=== PATIENT | female | born 1955 | race Caucasian/White ===

== ENCOUNTER 2016-05-04 17:04 | Emergency (ER) | payer MEDICAID ==
[~2016-05-04] VITALS: Ht 160 cm; Wt 70.0 kg
[2016-05-04] MEDS ORDERED: SODIUM CHLORIDE 0.9% 1,000 ML IV ONE (22:36)
[2016-05-04] MEDS ORDERED: ONDANSETRON HCL 4MG/2ML VIAL IV STA (22:36)
[2016-05-04] MEDS ORDERED: DIPHENOXYLATE/ATROPINE 2.5/0.025MG TABLET PO ONE (22:45)
[2016-05-04 23:40] VITALS: BP 107/69
[2016-05-05 00:30] LABS: BASOPHILS % 0.4 % (0.0-2.0); EOSINOPHILS % 1.5 % (0.0-5.0); HEMATOCRIT. 39.1 % (36.0-48.0); HEMOGLOBIN. 12.8 g/dL (12.0-16.0); LYMPHOCYTES % 26.5 % (20.0-50.0); MEAN CORPUSCULAR HEMOGLOBIN 28.9 pg (28.0-32.0); MEAN CORPUSCULAR HGB CONC 32.8 g/dL (31.0-37.0); MEAN CORPUSCULAR VOLUME 88.2 fL (81.0-99.0); MEAN PLATELET VOLUME 7.6 fl (7.4-10.4); MONOCYTES % 5.9 % (2.0-8.0); NEUTROPHILS % 65.7 % (40.0-76.0); PLATELET 251 x1000/uL (130-400); RED BLOOD CELL COUNT 4.44 mill/uL (4.2-5.4); RED CELL DISTRIBUTION WIDTH 13.7 % (11.6-14.6); WHITE BLOOD COUNT 8.6 x1000/uL (4.5-11.0)
[2016-05-05 00:39] LABS: CHLORIDE 110 mEq/L (98-107); INDEX HEMOLYSI 1 (1-3); INDEX ICTERIC 1 (1-4); INDEX LIPEMIC 1 (1-3)
[2016-05-05 00:48] LABS: ALANINE AMINOTRANSFERASE 39 IU/L (13-61); ALBUMIN 3.2 g/dL (3.4-5.0); ANION GAP 13; CALCIUM 8.1 mg/dL (8.5-10.1); CARBON DIOXIDE 21 mEq/L (21-32); LIPASE 129 IU/L (73-393); UREA NITROGEN BLOOD 10 mg/dL (7-21); eGFR > 60 mL/min (>60)
[2016-05-05 00:49] LABS: HCG SCREEN INDETERMINATE
[2016-05-05] MEDS ORDERED: POTASSIUM CHLORIDE 20MEQ TABLET SR PO NR (01:31)
== END 2016-05-05 01:45 | disposition home or self-care (01) ==
LOC: ER 20:52
DX: R10.84 Generalized abdominal pain (principal); E83.51 Hypocalcemia; E87.6 Hypokalemia; N28.1 Cyst of kidney, acquired; R91.1 Solitary pulmonary nodule; E07.9 Disorder of thyroid, unspecified; E78.5 Hyperlipidemia, unspecified; M19.90 Unspecified osteoarthritis, unspecified site; Z88.5 Allergy status to narcotic agent; Z91.013 Allergy to seafood; Z98.51 Tubal ligation status; Z90.49 Acquired absence of other specified parts of digestive tract; R94.8 Abnormal results of function studies of other organs and systems
CPT/HCPCS: 36415; 80053; 83690; 84702; 84703; 85025; 96361; 96374; 99285; J2405; J7030; Z7610

== ENCOUNTER 2017-03-22 14:09 | Emergency (ER) | payer MEDICAID, OTHER ==
[~2017-03-22] VITALS: Ht 160 cm; Wt 66.0 kg
[2017-03-22] MEDS ORDERED: IBUPROFEN 600MG TABLET PO ONE (15:30)
[2017-03-22 15:33] VITALS: BP 127/94
== END 2017-03-22 18:02 | disposition home or self-care (01) ==
LOC: ER 15:11
DX: S62.646A Nondisplaced fracture of proximal phalanx of right little finger, initial encounter for closed fracture (principal); M19.90 Unspecified osteoarthritis, unspecified site; Z88.5 Allergy status to narcotic agent; Z91.013 Allergy to seafood; Z90.49 Acquired absence of other specified parts of digestive tract; Z98.51 Tubal ligation status; W01.0XXA Fall on same level from slipping, tripping and stumbling without subsequent striking against object, initial encounter; Y93.89 Activity, other specified; Y92.89 Other specified places as the place of occurrence of the external cause
CPT/HCPCS: 29125; 73130; 99284

== ENCOUNTER 2018-04-12 12:57 | Emergency (ER) | payer MEDICAID, OTHER ==
[~2018-04-12] VITALS: Ht 162.6 cm; Wt 71.0 kg
[2018-04-12] MEDS ORDERED: HYDROCODONE/ACETAMINOPHEN 5/325MG TABLET PO ONE (14:45)
[2018-04-12 15:18] LABS: CLARITY URINE CLEAR (CLEAR); COLOR URINE YELLOW (YELLOW); KETONES URINE NEGATIVE (NEGATIVE); LEUKOCYTE ESTERASE URINE NEGATIVE (NEGATIVE); NITRITE URINE NEGATIVE (NEGATIVE); OCCULT BLOOD URINE NEGATIVE (NEGATIVE); PROTEIN URINE NEGATIVE (NEGATIVE); SPECIFIC GRAVITY URINE 1.005 (1.005-1.030); UROBILINOGEN URINE 0.2 E.U./dL (0.2-1.0)
[2018-04-12 15:43] VITALS: BP 154/92
== END 2018-04-12 15:56 | disposition home or self-care (01) ==
LOC: ER 12:57
DX: S39.012A Strain of muscle, fascia and tendon of lower back, initial encounter (principal); M19.90 Unspecified osteoarthritis, unspecified site; X58.XXXA Exposure to other specified factors, initial encounter; Y93.89 Activity, other specified; Y92.89 Other specified places as the place of occurrence of the external cause; Y99.8 Other external cause status; Z90.49 Acquired absence of other specified parts of digestive tract; Z98.51 Tubal ligation status; Z98.890 Other specified postprocedural states; Z88.6 Allergy status to analgesic agent; Z91.013 Allergy to seafood
CPT/HCPCS: 72100; 99284